=== PATIENT | female | born 1930 | race Caucasian/White ===

== ENCOUNTER 2018-08-06 13:39 | Inpatient (IN) | payer OTHER ==
[~2018-08-06] VITALS: Ht 144.8 cm; Wt 69.4 kg
== END 2018-08-11 17:56 | DRG 482 ==
LOC: ER 13:39 → EDBD 13:44 → ER 13:44 → SURG 21:38 → SEC-K 21:38 → SURG 21:38 → MEDJ 21:38 → SURG 08-08 19:00
PROVIDERS: ADMIT Internal Medicine
PROC: 4A12X4Z Monitoring of Cardiac Electrical Activity, External Approach (ICD-10-PCS; 2018-08-09)
PROC: 0QS706Z Reposition Left Upper Femur with Intramedullary Internal Fixation Device, Open Approach (ICD-10-PCS; principal; 2018-08-11)
DX: S72.142A Displaced intertrochanteric fracture of left femur, initial encounter for closed fracture (principal); W07.XXXA Fall from chair, initial encounter; I10 Essential (primary) hypertension; E11.9 Type 2 diabetes mellitus without complications; Z79.4 Long term (current) use of insulin
CPT/HCPCS: 70544

== ENCOUNTER 2018-08-27 13:59 | Outpatient (CLI) | payer OTHER | END 2018-08-27 15:53 | disposition home or self-care (01) | LOC: RAD 501 13:59 | DX: S72.142D Displaced intertrochanteric fracture of left femur, subsequent encounter for closed fracture with routine healing (principal) ==

== ENCOUNTER → 2018-12-06 | Emergency (ER) | payer OTHER ==
[~2018-12-06] VITALS: Ht 149.9 cm; Wt 65.8 kg
== END | disposition home or self-care (01) ==
LOC: ER 05:09
DX: R20.2 Paresthesia of skin (principal); R20.0 Anesthesia of skin; R00.1 Bradycardia, unspecified